=== PATIENT | male | born 1945 | race Caucasian/White ===

== ENCOUNTER 2017-04-08 11:30 | Emergency (ER) | payer MEDICARE ==
[~2017-04-08] VITALS: Ht 175.3 cm; Wt 106.6 kg
[~2017-04-08 11:30] MED LIST: ASPI81TA31 PO; CHOL100045 PO; FERR-58 PO; LAMO200T PO; LEVO75TA7 PO; ZINC220T PO
[2017-04-08] MEDS ORDERED: ENOX40DI SQ (12:29)
[2017-04-08] MEDS ORDERED: FURO-151 PO (12:29)
[2017-04-08] MEDS ORDERED: POTA8TAB8 PO (12:29)
[2017-04-08] MEDS ORDERED: ESCI20TA PO (12:29)
[2017-04-08] MEDS ORDERED: LAMO100T2 PO (12:29)
--- NOTE | 2017-04-08 12:34 | NUR ---
Patient is still in radiology department.
[2017-04-08 13:00] LABS: CREATININE 1.3 mg/dL (0.6-1.3); POTASSIUM 3.8 mmol/L (3.5-5.1)
--- NOTE | 2017-04-08 13:01 | NUR ---
Patient is back from radiology department in same condition, pending results and disposition
--- NOTE | 2017-04-08 13:06 | NUR ---
Fercho reyna in [facility] - 04/08/17 at 1308 by JEANETH Patient is back from radiology department in e condition, NAD
--- NOTE | 2017-04-08 13:07 | NUR ---
Patient is resting comfortably on gurney while talking to his visitors animatedly, calm & breathing easily.
[2017-04-08 13:12] LABS: BILIRUBIN,DIRECT 0.1 mg/dL (0.0-0.2); BILIRUBIN,TOTAL 0.7 mg/dL (0.2-1.0); TOTAL PROTEIN, SERUM 7.3 g/dL (6.4-8.2)
[2017-04-08 13:15] LABS: BASOPHILS % (AUTO) 0.5 % (0.0-2.0); EOSINOPHILS % (AUTO) 0.6 % (0.0-7.0); HEMATOCRIT 43.7 % (36.7-47.1); HEMOGLOBIN 14.8 g/dL (12.5-16.3); LYMPHOCYTES # (AUTO) 1.4 K/uL (20.0-40.0); LYMPHOCYTES % (AUTO) 24.4 % (20.5-51.5); MEAN CORPUSCULAR HEMOGLOBIN 31.6 uug (23.8-33.4); MEAN CORPUSCULAR HGB CONC 34 g/dL (32.5-36.3); MEAN CORPUSCULAR VOLUME 93.4 fL (73.0-96.2); MONOCYTES # (AUTO) 0.4 K/uL (2.0-10.0); MONOCYTES % (AUTO) 7.3 % (0.0-11.0); NEUTROPHILS # (AUTO) 3.9 K/uL (1.8-8.9); NEUTROPHILS % (AUTO) 67.2 % (38.5-71.5); PLATELET COUNT (AUTO) 165 K/uL (152-348); RED BLOOD CELL COUNT(AUTO) 4.68 MIL/uL (4.06-5.63); WHITE BLOOD COUNT (AUTO) 5.8 K/uL (3.6-10.2)
--- NOTE | 2017-04-08 14:19 | NUR ---
Patient is now for discharge instead of admission per Dr Crabtree. IV removed. Catheter intact and site benign. Pressure and 4x4 gauze applied to site. No bleeding noted. Patient discharged to home in stable conditon. Written and verbal after care instructions given to patient. Patient verbalizes understanding of instructions. Patient left ER with a walker ([facility] from our [facility]). 2nd Floor chargeback specialistJOHN Ibanez notified.
== END 2017-04-08 14:28 | disposition home or self-care (01) ==
LOC: ER 11:33
DX: S70.02XA Contusion of left hip, initial encounter (principal); E03.9 Hypothyroidism, unspecified; E66.01 Morbid (severe) obesity due to excess calories; E78.5 Hyperlipidemia, unspecified; F31.9 Bipolar disorder, unspecified; F41.9 Anxiety disorder, unspecified; I10 Essential (primary) hypertension; J45.909 Unspecified asthma, uncomplicated; K21.9 Gastro-esophageal reflux disease without esophagitis; K40.90 Unilateral inguinal hernia, without obstruction or gangrene, not specified as recurrent; K57.30 Diverticulosis of large intestine without perforation or abscess without bleeding; M16.0 Bilateral primary osteoarthritis of hip; I45.10 Unspecified right bundle-branch block; I87.2 Venous insufficiency (chronic) (peripheral); Z79.82 Long term (current) use of aspirin; W01.0XXA Fall on same level from slipping, tripping and stumbling without subsequent striking against object, initial encounter; Y92.89 Other specified places as the place of occurrence of the external cause; Y93.89 Activity, other specified; Y99.8 Other external cause status
CPT/HCPCS: 36415; 70030-TC; 71010; 72192; 83605; 85025; 85730; 87040; 93005; A4663

== ENCOUNTER 2019-02-21 18:13 | Emergency (ER) | payer MEDICARE ==
[~2019-02-21] VITALS: Ht 172.7 cm; Wt 129.7 kg
[~2019-02-21 18:13] MED LIST changes: +ENOX40DI SQ; +ESCI20TA PO; -FERR-58 PO; +FERR325T24 PO; +FURO-151 PO; +LAMO100T2 PO; -LAMO200T PO; +POTA8TAB8 PO; -ZINC220T PO
--- NOTE | 2019-02-21 18:59 | NUR ---
REPORT GIVEN TO RN FAMILY PRACTICE RN.
--- NOTE | 2019-02-21 18:59 | NUR ---
PT IS IN ROOM #1B. DR ZAMORANO EVALUATED THE PT.
[2019-02-21 19:00] LABS: BASOPHILS % (AUTO) 0.5 % (0.0-2.0); EOSINOPHILS # (AUTO) 0.1 K/uL (0.0-0.7); EOSINOPHILS % (AUTO) 1.1 % (0.0-7.0); HEMATOCRIT 39.1 % (36.7-47.1); HEMOGLOBIN 12.8 g/dL (12.5-16.3); LYMPHOCYTES # (AUTO) 1.9 K/uL (20.0-40.0); LYMPHOCYTES % (AUTO) 27.8 % (20.5-51.5); MEAN CORPUSCULAR HEMOGLOBIN 31.6 uug (23.8-33.4); MEAN CORPUSCULAR HGB CONC 33 g/dL (32.5-36.3); MEAN CORPUSCULAR VOLUME 96.7 fL (73.0-96.2); MONOCYTES # (AUTO) 0.6 K/uL (2.0-10.0); MONOCYTES % (AUTO) 8.6 % (0.0-11.0); NEUTROPHILS # (AUTO) 4.3 K/uL (1.8-8.9); PLATELET COUNT (AUTO) 177 K/uL (152-348); RED BLOOD CELL COUNT(AUTO) 4.05 MIL/uL (4.06-5.63)
[2019-02-21 19:14] LABS: CARBON DIOXIDE 30 mmol/L (21-32); CHLORIDE 101 mmol/L (98-107); CREATININE 1.7 mg/dL (0.6-1.3); GLUCOSE 93 mg/dL (74-106); POTASSIUM 4.3 mmol/L (3.5-5.1); UREA NITROGEN, BLOOD 25 mg/dL (7-18)
[2019-02-21 19:20] LABS: ALANINE AMINOTRANSFERASE 14 U/L (16-63); ALKALINE PHOSPHATASE 74 U/L (50-136); ASPARTATE AMINOTRANSFERASE 6 U/L (15-37); BILIRUBIN,TOTAL 0.3 mg/dL (0.2-1.0)
[2019-02-21] MEDS ORDERED: CEphaleXIN 500 MG CAPSULE ONE (19:41)
[2019-02-21] MEDS ORDERED: HYDROCODONE/APAP 5-325MG TABLET ONE (19:41)
[2019-02-21] MEDS ORDERED: HYDROCODONE/APAP 5-325MG TABLET PO ONE (19:45)
[2019-02-21] MEDS ORDERED: CEphaleXIN 500 MG CAPSULE PO ONE (19:45)
--- NOTE | 2019-02-21 19:45 | NUR ---
KEFLEX GIVEN 500 MG PO AND NORCO 5/325 MG GIVEN PO FOR LEFTHIP PAIN AND ANTERIOR LEFT GROIN WHERE THE RASHES ARE , MEDICATION TOLERATED WITH WATER.
--- NOTE | 2019-02-21 19:56 | NUR ---
Patient discharged to home in stable conditon. Written and verbal after care instructions given. Patient verbalizes understanding of instructions.GOING HOME WITH TOMLINSON INSTRUCTED TO CALL 911 FOR ANY EMERGENCY , WENT HOME WITH BELONGINGS.
[2019-02-21 19:57] VITALS: BP 141/66
== END 2019-02-21 19:58 | disposition home or self-care (01) ==
LOC: ER 18:19
DX: R21 Rash and other nonspecific skin eruption (principal); R79.89 Other specified abnormal findings of blood chemistry; G89.29 Other chronic pain; M25.559 Pain in unspecified hip; I10 Essential (primary) hypertension; E78.5 Hyperlipidemia, unspecified; J45.909 Unspecified asthma, uncomplicated; F41.9 Anxiety disorder, unspecified; F32.9 Major depressive disorder, single episode, unspecified; E03.9 Hypothyroidism, unspecified; Z79.899 Other long term (current) drug therapy; Z79.82 Long term (current) use of aspirin
CPT/HCPCS: 36415; 85025; 85610; 85730; A4663